=== PATIENT | male | born 1960 | race African-American/Black ===

== ENCOUNTER 2018-09-26 09:22 | Emergency (ER) | payer OTHER ==
[~2018-09-26] VITALS: Ht 170.2 cm; Wt 93.9 kg
[~2018-09-26 09:22] MED LIST: ALDACTONE25 MG PO; AMIODARONE HCL400 MG PO; ATORVASTATIN CA40 MG PO; CARVEDILOL12.5 MG PO; COUMADIN 2 MG TA2 M1 PO; COUMADIN 4 MG TA4 M1 PO; DEMADEX20 MG PO; LASIX 40 MG TAB40 M2 PO; LISINOPRIL20 MG PO; OMEGA-31000 M1 PO; ONDANSETRON HCL4 M2 PO; PACERONE 200 M200 M1 PO; PEPCID20 MG PO; TOPROL XL100 MG PO; TUMS PO; TYLENOL325 MG PO; VITAMIN D2000 UNIT PO; ZESTRIL10 MG PO
[2018-09-26 10:00] LABS: BASOPHILS 1.1 % (0.0-2.0); EOSINOPHILS 1.3 % (0.0-3.0); HEMATOCRIT 34.4 % (42.0-52.0); LYMPHOCYTES 12.5 % (24.0-44.0); MCH 26.5 pg (26.0-34.0); MCHC 32.1 g/dL (28.0-37.0); MCV 82.6 fL (80.0-100.0); MONOCYTES 7.4 % (1.0-8.0); PLATELET COUNT 173 thou/uL (150-400); POLYS 77.7 % (36.0-66.0); RBC 4.17 mil/uL (4.50-6.00); RDW 18.7 % (10.5-14.5); WBC 5.1 thou/uL (4.0-11.0)
[2018-09-26 10:12] LABS: ANION GAP 14 mmol/L (7-16); BUN 95 mg/dL (7-18); CALCIUM 9.7 mg/dL (8.5-10.1); CHLORIDE 108 mmol/L (98-107); CO2 25 mmol/L (21-32); CREATININE 4.5 mg/dL (0.7-1.3); GLUCOSE 144 mg/dL (74-106); POTASSIUM 3.4 mmol/L (3.5-5.1); SODIUM 147 mmol/L (136-145)
[2018-09-26 10:20] LABS: TROPONIN-I <0.06 ng/mL (<0.06)
[2018-09-26 10:21] LABS: ANISOCYTOSIS 2+; PLATELET ESTIMATE NORMAL
[2018-09-26 10:22] LABS: OVALOCYTES 1+; POLYCHROMASIA SLIGHT; SCHISTOCYTES FEW
[2018-09-26 11:05] LABS: INR 2.2; PROTIME 23.3 Seconds (9.3-11.4)
[2018-09-26 12:40] VITALS: BP 109/77
--- NOTE | 2018-09-26 17:19 | EKG ---
[place] [address] [facility] [address] [place] [address] ELECTROCARDIOGRAM REPORT Name: KIYA SOTOMAYOR FANYAKILA Room [facility]: [id number] ������������������ Admission: 09/26/18 ������������������ Attend Phys: Discharge: 09/26/18 ������������������ Date of : 60 Report #: [id number] ����������������������������������������������������������������� [id number] THIS REPORT FOR: //name// [facility] ED Test Date: 2018-09-26 Test Time: 09:25:35 Pat Name: KIYA SOTOMAYOR Department: Room: Gender: M [employer]: ZA : 1960 Requested By: Harry Page Order Number: [id number] MD: David Merrill Measurements Intervals [place] Rate: 101 P: -69 IN: 165 QRS: -150 QRSD: 149 T: QT: 416 QTc: 540 Interpretive Statements Ventricular-paced complexes No further rhythm analysis attempted due to paced rhythm IVCD, consider atypical RBBB Compared to ECG 11/22/2014 13:08:54 Intermittent ventricular pacing is now present Electronically Signed On 09-26-2018 17:19:42 CDT by David Merrill [email or web address] ��������������������������������������������� <ELECTRONICALLY SIGNED> ���������������������������������������� By: David Merrill MD, [facility] ��������������������������������������������� 09/26/18 [id number] David Merrill MD, [facility] /EPI
== END 2018-09-26 12:40 ==
LOC: ER 09:22
PROVIDERS: Emergency Medicine
DX: N17.9 Acute kidney failure, unspecified (principal); R07.89 Other chest pain; R79.89 Other specified abnormal findings of blood chemistry; I11.0 Hypertensive heart disease with heart failure; I50.9 Heart failure, unspecified; E78.5 Hyperlipidemia, unspecified; K21.9 Gastro-esophageal reflux disease without esophagitis; Z86.73 Personal history of transient ischemic attack (TIA), and cerebral infarction without residual deficits; Z87.891 Personal history of nicotine dependence; Z88.5 Allergy status to narcotic agent; Z88.6 Allergy status to analgesic agent